=== PATIENT | male | born 1935 | race Caucasian/White ===

== ENCOUNTER 2017-02-22 08:37 | Day surgery (SDC) | payer MEDICARE, OTHER ==
[~2017-02-22 08:37] MED LIST: PROPOFOL INJ 200 MG/20 ML VIAL IV ONE
[2017-02-22 11:05] VITALS: BP 99/51
--- NOTE | 2017-02-22 12:25 | Operative Report ---
Operative Report DATE OF SURGERY: 02/22/17 Operative Report: The risks, benefits and alternatives of the procedure including risks of bleeding, perforation requiring surgery are explained to the patient in detail and informed consent was obtained. Patient was taken back to the endoscopy suite and placed in the left, lateral decubital position. Timeout was called. Propofol medications administered. A rectal examination is done which did not reveal any masses, tears or fissures. An Olympus videoscope was inserted into the patient's rectum. The scope was then carefully advanced all the way to the cecum. The cecum was identified by the usual anatomical landmarks including the ileocecal valve as well as the appendiceal office. Prep is good. Photodocumentation is obtained. The scope was then sequentially pulled back via the various segments of the colon including the ascending colon, hepatic flexure, transverse colon, splenic flexure, descending colon finding to the rectosigmoid portions of the colon. Retroflexion maneuvers performed. The risks benefits and alternatives of the procedure explained to the patient in detail and informed consent is obtained.A GIF Olympus video scope was inserted into the patient's mouth and hypopharynx ,the esophagus is identified intubated and insufflated, the scope was then advanced through the esophagus stomach and duodenum ,retroflexion maneuver is done, the esophagus stomach and first and second portions of the duodenum examined PREOPERATIVE DIAGNOSIS: Heme positive stools. Personal history of polyps. Weight loss POSTOPERATIVE DIAGNOSIS: Ulcer at the anastomotic site status post biopsy. Internal hemorrhoids. Diverticulosis. Multiple fundic gland polyps noted in the stomach. Removal of 2 of the polyps via snare polypectomy requiring Perry net for retrieval OPERATION: Colonoscopy with biopsy. EGD with snare polypectomy SURGEON: MACI ANTHONY ANESTHESIA: LMAC TISSUE REMOVED OR ALTERED: As noted above. COMPLICATIONS: None. ESTIMATED BLOOD LOSS: None. INTRAOPERATIVE FINDINGS: As described above. PROCEDURE: Patient tolerated procedure well. No immediate postprocedure complications are noted. Patient discharged in good condition. Discharge date 02/22/2017. Discharge diet: Regular. Discharge activity: Regular. 2-3 week follow-up to discuss findings. Patient is instructed to call the office or proceed to the emergency room should there be any further problems or questions. We will wait on pathology. May need surveillance colonoscopy in 6 months to document the healing of the ulcer.
== END 2017-02-22 11:12 | disposition home or self-care (01) ==
LOC: END 08:37
PROVIDERS: ATTEND Internal Medicine Gastroenterology
PROC: 0DB68ZX Excision of Stomach, Via Natural or Artificial Opening Endoscopic, Diagnostic (ICD-10-PCS; principal; 2017-02-22 10:30)
PROC: 0DBE8ZX Excision of Large Intestine, Via Natural or Artificial Opening Endoscopic, Diagnostic (ICD-10-PCS; 2017-02-22 10:30)
DX: Z12.11 Encounter for screening for malignant neoplasm of colon (principal); K63.5 Polyp of colon; K51.90 Ulcerative colitis, unspecified, without complications; K57.30 Diverticulosis of large intestine without perforation or abscess without bleeding; K64.8 Other hemorrhoids; K31.7 Polyp of stomach and duodenum; D64.9 Anemia, unspecified; I10 Essential (primary) hypertension; Z87.891 Personal history of nicotine dependence; Z88.8 Allergy status to other drugs, medicaments and biological substances
CPT/HCPCS: 43251; 45380; 88305 ×2; J2704; 810

== ENCOUNTER 2019-07-02 16:01 | Emergency (ER) | payer MEDICARE, OTHER ==
[2019-07-02] MEDS ORDERED: ASPIRIN 81 MG TABLET, CHEWABLE PO ONE (16:25)
--- NOTE | 2019-07-02 16:27 | ER Document Report ---
ED Medical Screen (RME) - General Chief Complaint: Chest Pain Stated Complaint: CHEST PAIN Time Seen by Provider: 07/02/19 16:20 Primary Care Provider: PALLAVI GORDILLO MD [Primary Care Provider] - Follow up as needed Mode of Arrival: Wheelchair Information source: Patient, Relative Notes: 83-year-old male with history of high blood pressure presents emergency depar tment with complaints of sudden onset midsternal chest pain. His reports he just walked in a house and said he needed go to the hospital because his chest was hurting. By the time he got here the chest pain had gone away. Denies history of cardiac disease. Denies nausea vomiting. Denies recent cough cold. Patient is laughing no obvious distress. I have greeted and performed a rapid initial assessment of this patient. A comprehensive ED assessment and evaluation of the patient, analysis of test results and completion of the medical decision making process will be conducted by additional ED providers. TRAVEL OUTSIDE OF THE [place] IN LAST 30 DAYS: No - Related Data Allergies/Adverse Reactions: propoxyphene HCl [From Darvon] Allergy (Mild, Verified 07/02/19 16:20) SEVERE HEADACHES quinine [Quinine] Adverse Reaction (Mild, Verified 07/02/19 16:20) MAKES VERY COLD Past Medical History - Social History Chew tobacco use (# tins/day): No Frequency of alcohol use: None Drug Abuse: None - Past Medical History Cardiac Medical History: Reports: Hx Hypertension Denies: Hx Coronary Artery Disease, Hx Heart Attack Pulmonary Medical History: Reports: Hx COPD - NO OXYGEN, Hx Pneumonia Denies: Hx Asthma, Hx Bronchitis Neurological Medical History: Denies: Hx Cerebrovascular Accident, Hx Seizures GI Medical History: Reports: Hx Gastroesophageal Reflux Disease. Denies: Hx Hepatitis, Hx Hiatal Hernia, Hx Ulcer Musculoskeltal Medical History: Reports Hx Arthritis - LOWER BACK Infectious Medical History: Denies: Hx Hepatitis Past Surgical History: Reports: Hx Abdominal Surgery - 1/2 of colon removed and small bowel resection, Hx Appendectomy, Hx Cholecystectomy, Hx Tonsillectomy. Denies: Hx Open Heart Surgery, Hx Pacemaker - Immunizations Hx Diphtheria, Pertussis, Tetanus Vaccination: - UNSURE Physical Exam - Vital signs Vitals: Temp Pulse Resp BP Pulse Ox 97.4 F 68 16 153/111 H 100 07/02/19 16:20 07/02/19 16:20 07/02/19 16:20 07/02/19 16:20 07/02/19 16:20 Course - Vital Signs Vital signs: Temp Pulse Resp BP Pulse Ox 97.4 F 68 16 153/111 H 100 07/02/19 16:20 07/02/19 16:20 07/02/19 16:20 07/02/19 16:20 07/02/19 16:20 Doctor's Discharge - Discharge Referrals: PALLAVI GORDILLO MD [Primary Care Provider] - Follow up as needed
[2019-07-02 17:08] LABS: ABSOLUTE EOSINOPHILS # (AUTO) 0.4 10^3/uL (0.0-0.6); ABSOLUTE LYMPHOCYTES (AUTO) 1.3 10^3/uL (0.5-4.7); ABSOLUTE MONOCYTES (AUTO) 0.7 10^3/uL (0.1-1.4); ABSOLUTE NEUT (AUTO) 5.7 10^3/uL (1.7-8.2); BASOPHILS % (AUTO) 0.5 % (0-2); EOSINOPHILS % (AUTO) 5.5 % (0-6); HEMOGLOBIN 15.8 g/dL (13.5-17.0); LYMPHOCYTES % (AUTO) 16.2 % (13-45); MEAN CORPUSCULAR HEMOGLOBIN 31.9 pg (27.0-33.4); MEAN CORPUSCULAR HGB CONC 35.8 g/dL (32.0-36.0); MEAN CORPUSCULAR VOLUME 89 fl (80-97); MONOCYTES % (AUTO) 8.1 % (3-13); PLATELET COUNT 245 10^3/uL (150-450); RED BLOOD COUNT 4.95 10^6/uL (4.35-5.55); RED CELL DISTRIBUTION WIDTH 13.6 % (11.5-14.0); SEGMENTED NEUTROPHILS % (AUTO) 69.7 % (42-78); TOTAL CELLS COUNTED % (AUTO) 100 %; WHITE BLOOD COUNT 8.2 10^3/uL (4.0-10.5)
[2019-07-02 17:20] LABS: ALBUMIN 4.5 g/dL (3.5-5.0); ALKALINE PHOSPHATASE 52 U/L (38-126); ANION GAP 10 (5-19); ASPARTATE AMINO TRANSFERASE 29 U/L (17-59); BILIRUBIN,TOTAL 0.6 mg/dL (0.2-1.3); BLOOD UREA NITROGEN 21 mg/dL (7-20); CALCIUM 10.2 mg/dL (8.4-10.2); CARBON DIOXIDE 28 mmol/L (22-30); CHLORIDE 103 mmol/L (98-107); GLUCOSE 97 mg/dL (75-110); TOTAL PROTEIN 7.6 g/dL (6.3-8.2)
[2019-07-02 17:23] LABS: APPEARANCE,URINE CLEAR; BILIRUBIN,URINE NEGATIVE (NEGATIVE); COLOR,URINE YELLOW; GLUCOSE, URINE NEGATIVE (NEGATIVE); KETONES,URINE NEGATIVE (NEGATIVE); LEUKOCYTE ESTERASE,URINE TRACE (NEGATIVE); NITRITE,URINE NEGATIVE (NEGATIVE); PROTEIN,URINE NEGATIVE (NEGATIVE); URINE SPECIFIC GRAVITY 1.014; UROBILINOGEN,URINE NEGATIVE mg/dL (<2.0)
--- NOTE | 2019-07-02 17:23 | RADIOLOGY REPORT (SQ) ---
EXAM DESCRIPTION: CHEST 2 VIEWS COMPLETED DATE/TIME: 07/02/2019 5:01 pm REASON FOR STUDY: cp COMPARISON: Chest radiographs 02/10/2014 EXAM PARAMETERS: NUMBER OF VIEWS: two views TECHNIQUE: Digital Frontal and Lateral radiographic views of the chest acquired. RADIATION DOSE: NA LIMITATIONS: none FINDINGS: LUNGS AND PLEURA: COPD changes. No focal airspace consolidation. No pneumothorax or pleu ral effusion. MEDIASTINUM AND HILAR STRUCTURES: Unchanged. HEART AND VASCULAR STRUCTURES: Unchanged. BONES: No acute findings. HARDWARE: Right upper quadrant surgical clips. OTHER: No other significant finding. IMPRESSION: COPD changes. No acute pulmonary findings. TECHNICAL DOCUMENTATION: JOB ID: [id number] [employer]- All Rights Reserved Reading location - IP/workstation name: NON FOOD RECEIVING [email or web address]--[email or web address]
--- NOTE | 2019-07-02 18:13 | ER Document Report ---
ED General - General Chief Complaint: Chest Pain Stated Complaint: CHEST PAIN Time Seen by Provider: 07/02/19 16:20 Primary Care Provider: PALLAVI GORDILLO MD [Primary Care Provider] - Follow up as needed Mode of Arrival: Wheelchair TRAVEL OUTSIDE OF THE [place] IN LAST 30 DAYS: No - HPI Notes: Patient is an 83-year-old male who presents emergency department for chest pain. He was sitting at the computer, playing solitaire. He suddenly developed a sev ere crushing chest pain in the lower sternal area. It did not radiate. He had no associated shortness of breath, nausea, diaphoresis, near syncope. He states that it was most intense when it started, and then gradually faded as time went on. He states overall it lasted about 15 minutes. He has not had any recurrence of the pain since. He denies any other associated symptoms, he has never had pain like this in the past. He did to start a new medicine, he states it was "for memory," but he cannot tell me what it was. He wonders if that might be responsible. The patient cannot recall ever having had a stress test. He does have a history of pulmonary embolus and high blood pressure. He has been taking his medications as prescribed. - Related Data Allergies/Adverse Reactions: propoxyphene HCl [From Darvon] Allergy (Mild, Verified 07/02/19 16:20) SEVERE HEADACHES quinine [Quinine] Adverse Reaction (Mild, Verified 07/02/19 16:20) MAKES VERY COLD Home Medications: Fosinopril, Xarelto, Nexium, "memory pill," and an inhaler for his COPD that he cannot identify Past Medical History - General Information source: Patient, Relative - Social History Smoking Status: Former Smoker Chew tobacco use (# tins/day): No Frequency of alcohol use: None Drug Abuse: None Family History: Reviewed & Not Pertinent Patient has suicidal ideation: No Patient has homicidal ideation: No - Past Medical History Cardiac Medical History: Reports: Hx Hypertension, Hx Pulmonary Embolism Denies: Hx Coronary Artery Disease, Hx Heart Attack Pulmonary Medical History: Reports: Hx COPD - NO OXYGEN, Hx Pneumonia Denies: Hx Asthma, Hx Bronchitis Neurological Medical History: Denies: Hx Cerebrovascular Accident, Hx Seizures GI Medical History: Reports: Hx Gastroesophageal Reflux Disease, Hx Ulcer. Denies: Hx Hepatitis, Hx Hiatal Hernia Musculoskeletal Medical History: Reports Hx Arthritis - LOWER BACK Infectious Medical History: Denies: Hx Hepatitis Past Surgical History: Reports: Hx Abdominal Surgery - 1/2 of colon removed and small bowel resection, Hx Appendectomy, Hx Cholecystectomy, Hx Tonsillectomy. Denies: Hx Open Heart Surgery, Hx Pacemaker - Immunizations Hx Diphtheria, Pertussis, Tetanus Vaccination: - UNSURE Hx Pneumococcal Vaccination: 03/07/16 Review of Systems - Review of Systems Constitutional: No symptoms reported EENT: No symptoms reported Cardiovascular: See HPI Respiratory: No symptoms reported Gastrointestinal: No symptoms reported Genitourinary: No symptoms reported Musculoskeletal: No symptoms reported Skin: No symptoms reported Neurological/Psychological: No symptoms reported Physical Exam - Vital signs Vitals: Temp Pulse Resp BP Pulse Ox 97.4 F 68 16 153/111 H 100 07/02/19 16:20 07/02/19 16:20 07/02/19 16:20 07/02/19 16:20 07/02/19 16:20 - Notes Notes: Vital signs reviewed, please refer to chart. Head is normocephalic, atraumatic. Pupils equal round, reactive to light. Neck is supple without meningismus. Heart is regular rate and rhythm. Lungs are clear to auscultation bilaterally. Abdomen is soft, nontender, normoactive bowel sounds throughout. Extremities without cyanosis, clubbing. Posterior calves are nontender. Peripheral pulses are equal. Skin is warm and dry. Patient is awake, alert, neurological exam is nonfocal. Course - Re-evaluation Re-evalutation: 07/02/19 18:12 Patient presents emergency department for evaluation. He complains of chest pain that started while he was at rest. He had initial laboratory investigations as ordered through triage. Initial troponin was negative. EKG shows no acute changes. Unfortunately I do not have any old studies to compare. This patient's age and high blood pressure certainly risk factors, but his pain is atypical. Currently he has no chest pain, has not any recurrence of symptoms since arrival. Will await the second troponin. While I was in the room with the patient, he did have a significant amount of PVCs. A magnesium level is added to his lab work as well. Patient was notified that any change in his symptoms needed to be reported immediately to this physician. We will continue to monitor. 07/02/19 21:13 Patient did not had a recurrence of his chest pain. A second troponin is negative. We will have him follow-up with his primary care provider tomorrow. He is to return to the ED with worsening. - Vital Signs Vital signs: Temp Pulse Resp BP Pulse Ox 97.4 F 68 29 H 147/94 H 96 07/02/19 16:20 07/02/19 16:20 07/02/19 20:00 07/02/19 19:02 07/02/19 20:00 - Laboratory Result Diagrams: 07/02/19 16:44 07/02/19 16:44 Laboratory results interpreted by me: 07/02/19 07/02/19 16:44 16:44 BUN 21 H Urine Blood SMALL H Ur Leukocyte Esterase TRACE H - Diagnostic Test Radiology reviewed: Reports reviewed Radiology results interpreted by me: 07/02/19 21:13 Chest X-Ray 07/02/19 16:25 IMPRESSION: COPD changes. No acute pulmonary findings. - EKG Interpretation by Me Additional EKG results interpreted by me: 07/02/19 21:13 Sinus mechanism with a rate of 60 bpm. Left axis deviation. IVCD. No acute ST changes concerning for ischemia or infarction. No old studies available for comparison. Discharge - Discharge Clinical Impression: Chest pain Condition: Stable Disposition: HOME, SELF-CARE Instructions: Chest Pain of Unclear Cause ([facility]) Additional Instructions: No clear cause was found for your chest pain today. Please contact your primary care physician tomorrow. He should discuss the possibility of an outpatient stress test. If your pain returns, or you develop new or concerning symptoms of any sort, please return immediately to the emergency department for evaluation. Referrals: PALLAVI GORDILLO MD [Primary Care Provider] - Follow up as needed
[2019-07-02 21:56] VITALS: BP 139/76
--- NOTE | 2019-07-02 21:58 | EKG REPORT ---
SEVERITY:- BORDERLINE ECG - SINUS RHYTHM BORDERLINE IVCD WITH LAD : Confirmed by: Keyon Seth MD 02-Jul-2019 21:58:08
== END 2019-07-02 21:56 | disposition home or self-care (01) ==
LOC: ER 16:01
DX: R07.89 Other chest pain (principal); I49.3 Ventricular premature depolarization; I45.9 Conduction disorder, unspecified; I10 Essential (primary) hypertension; J44.9 Chronic obstructive pulmonary disease, unspecified; K21.9 Gastro-esophageal reflux disease without esophagitis; Z79.899 Other long term (current) drug therapy; Z79.01 Long term (current) use of anticoagulants; Z86.711 Personal history of pulmonary embolism; Z87.891 Personal history of nicotine dependence
CPT/HCPCS: 93005; 99285; 36415; 83735; 85025; 80053; 81001; 84484; 71046; 93010; A9270